=== PATIENT | female | born 1990 | race Caucasian/White ===

== ENCOUNTER 2018-09-03 09:35 | Day surgery (SDC) | payer BC ==
[2018-09-02 09:10] VITALS: BMI 24.0
--- NOTE | 2018-09-03 07:31 | HP ---
REASON FOR ADMISSION: Missed AB at 8 to 10 weeks gestation. HISTORY OF PRESENT ILLNESS: Jens is a 28-year-old 1, now para 0, AB 1, who first presented to my office on 08/19 for this . At that time, she was found to have a gestational sac with a crown-rump length consistent with 6 to 8 weeks. No heart tones were noticed. Decision was made to check hormone levels and rescan in 1 week to confirm missed AB. Rescan confirmed missed AB. Progesterone was within normal limits for at 16.6. Blood type is O positive and beta HCG was 55,000. Re-scan, the next week confirmed missed AB with a 3 to 4 mm crown-rump length with no FHTs present. No adnexal masses were noted. WEATHERIZATION COORDINATOR HISTORY: None. PAST SURGICAL HISTORY: Skin cancer and eye surgery for prosthetic left eye. MEDICAL HISTORY: None. ALLERGIES: CECLOR, CEPHALOSPORINS, AND PENICILLIN. MEDICATIONS: vitamins. SOCIAL HISTORY: Denies tobacco, alcohol, or IV drug use. FAMILY HISTORY: Noncontributory. REVIEW OF SYSTEMS: Noncontributory. PHYSICAL EXAMINATION: VITAL SIGNS: White female, no acute distress, 5 feet and 1 inches, weight 124, BMI 23, blood pressure 112/66, pulse 77, and respirations 18. HEENT: Within normal limits. LUNGS: Clear to auscultation bilaterally. HEART: Regular rate and rhythm. BREASTS: No masses bilaterally. ABDOMEN: Soft and nontender. No rebound or guarding. GENITALIA: Vulva without lesions. Vagina without discharge. PELVIS: Cervix nulliparous. Uterus anteverted, 6 to 8 weeks size. Adnexa, no masses bilaterally. EXTREMITIES: No clubbing, cyanosis, or edema. IMPRESSION: Missed at approximately 8 weeks gestation. PLAN: Suction and sharp D and C on 09/03, we will administer appropriate antibiotic prophylaxis. Original orders were for Ancef, however, with the patient's cephalosporin allergy, we will administer clindamycin 900 IV x1 instead. Job ID: [id number]
[2018-09-03 10:26] LABS: Hemoglobin 13.3 g/dL (12.0-16.0); Mean Corpuscular HGB CONC 34.4 g/dL (32.0-36.0); Mean Corpuscular Hemoglobin 31.5 pg (27.0-31.0); Mean Corpuscular Volume 91.4 fL (78.0-98.0); Mean Platelet Volume 7.3 fL (7.4-10.4); Platelet Count 280 thou/uL (130-400); RBC Distribution Width 11.4 % (11.5-14.5); Red Blood Cell (RBC) Count 4.23 mill/uL (4.20-5.40); White Blood Cell (WBC) Count 7.1 thou/uL (4.8-10.8)
[2018-09-03] MEDS ORDERED: PROPOFOL 200 MG/20 ML VIAL ONE (11:03)
[2018-09-03] MEDS ORDERED: Ondansetron PF 4 MG/2 ML Vial ONE (11:03)
[2018-09-03] MEDS ORDERED: Ketorolac Tromethamine 30 MG/ML VIAL ONE (11:03)
[2018-09-03] MEDS ORDERED: Clindamycin/D5W 900 mg/50 ml Premix Bag ONE (11:04)
[2018-09-03] MEDS ORDERED: Scopolamine 1.5 mg/72 hour Patch ONE (11:26)
[2018-09-03] MEDS ORDERED: Midazolam HCl 2 mg/2 ml Vial ONE ×2 (11:26→11:36)
[2018-09-03] MEDS ORDERED: Fentanyl 100 MCG/2 ML VIAL ONE (11:36)
[2018-09-03] MEDS ORDERED: Propofol 500 MG/50 ML VIAL ONE (11:37)
[2018-09-03] MEDS ORDERED: Oxytocin 10 UNITS/ML VIAL ONE (12:14)
--- NOTE | 2018-09-05 14:30 | PDOC.OP ---
Operative Note - Operative Note Operative Note: *Dictated Operative Note Pending* DATE OF OPERATION: 09/03/2018 PREOPERATIVE DIAGNOSIS: 28 yo with missed at 6 to 8 weeks gestation POSTOPERATIVE DIAGNOSIS: Missed s/p Suction/Sharp Dilation and Curettage PROCEDURE PERFORMED: Suction/Sharp D&C. SURGEON: Selvin Bergman MD RESIDENT SURGEON: Ilana Still MD, PGY-3 ANESTHESIA: Total intravenous anesthesia ESTIMATED BLOOD LOSS: 20 mL COMPLICATIONS: None. SPECIMEN: Products of conception. OPERATIVE FINDINGS: Exam under anesthesia revealed normal external genitalia. The patient has a small slightly retroverted uterus. Cervix is soft, normal in appearance without lesions. Uterus was sounded to 7 cm. Cervix was dilated to 7mm Kevan dilator. DESCRIPTION OF OPERATION: After consents were signed, the patient was taken to the OR where TIVA was initiated. The patient was placed in the [facility] stirrups and prepped and draped in the normal sterile fashion in dorsal lithotomy position. A time-out was performed. After the bladder was drained, a Graves speculum was used to visualize the cervix. The cervix was then grasped at the anterior lip with a single-tooth tenaculum. The uterus was then gently sounded to 7.5 cm. The cervix was then gently and progressively dilated to 7 mm. A 7 mm suction curette was then inserted into the uterine cavity. The suction device was then activated and the curette turned to clear the uterus of products of conception. A sharp curettage of the uterine cavity was then performed until a gritty texture was felt on all the surfaces. The specimen was collected and sent to pathology. The instruments were then removed from the vagina, including the tenaculum. The tenaculum site was confirmed to be hemostatic. The patient tolerated the procedure well. All counts were correct. The patient was taken to the recovery room in stable condition.
--- NOTE | 2018-09-08 10:31 | OP ---
DATE OF PROCEDURE: 09/03/2018 CASUAL SHOE INSPECTOR: Ilana Still MD, PGY-3 ANESTHESIA: TIVA. PREOPERATIVE DIAGNOSIS: Missed at approximately 10 weeks gestation. POSTOPERATIVE DIAGNOSIS: Missed status post D and C. PROCEDURES PERFORMED: Suction and sharp dilation and curettage. OPERATIVE FINDINGS: 1. Normal bimanual exam slightly retroverted uterus. No adnexal mass is palpated. 2. Moderate endometrial tissue from curettage. ESTIMATED BLOOD LOSS: Approximately 20 mL. COMPLICATIONS: None. INDICATIONS: A 28-year-old G1, now para 0-0-1-0 at approximately 10 weeks gestation, who presented from Dr. Bergman's office with missed AB. She had an initial ultrasound, which did not show any heart tones on 08/19/2018, which was repeated one week later and confirmed missed AB with a smaller measuring crown-rump length and no heart tones. Options were discussed with the patient and she elected to proceed with dilation and curettage. DESCRIPTION OF PROCEDURE: The patient was found to be comfortable with the anesthesia administered. She was placed in dorsal lithotomy position and legs were placed in candy-cane stirrups. She was prepped and draped in the usual sterile fashion. Bimanual exam prior to prepping revealed a mobile slightly retroverted uterus at approximately 8 weeks gestational size. In and out catheterization was performed. A weighted speculum was placed in the vagina and the anterior lip of the cervix was grasped with a single-tooth tenaculum and brought forward. , which was found to be approximately 10 cm. A series of Hegar dilators were then inserted sequentially into cervical os up to a size of 6 mm. A 7 mm curette was used to perform the curettage. In sequential order, curette were performed to obtain curettage was used to gently sweep the endometrial tissue and was found to be diffusely gritty in nature. Following this, the suction curettage was returned and no further tissue fragments were able to be removed. The tissue samples were sent to pathology. The tenaculum was removed and the cervix was examined for hemostasis, which was achieved. The weighted speculum was removed. The patient tolerated the procedure well, was brought to the recovery room in stable condition. All counts were correct. The blood loss was minimal and there were no complications. Job ID: [id number]
== END 2018-09-03 14:40 | disposition home or self-care (01) ==
LOC: SDC 09:35
PROVIDERS: ATTEND Family Medicine
PROC: 10D17ZZ Extraction of Products of Conception, Retained, Via Natural or Artificial Opening (ICD-10-PCS; principal; 2018-09-03)
DX: O02.1 Missed abortion (principal); N85.4 Malposition of uterus; Z88.0 Allergy status to penicillin; Z88.1 Allergy status to other antibiotic agents; Z79.899 Other long term (current) drug therapy
CPT/HCPCS: 36415; 85027; 86850; 86900; 86901; 88305; J1885; J2250; J2405; J2590; J2704; J3010; J3490